=== PATIENT | male | born 1960 | race Caucasian/White ===

== ENCOUNTER 2017-03-05 13:46 | Emergency (ER) | payer MEDICAID ==
[2017-03-05 13:50] VITALS: BMI 31.1
[2017-03-05 13:54] VITALS: TEMP 98.4; O2SAT 96
[2017-03-05] MEDS ORDERED: TDAP Vaccine 0.5 mL Syr IM ONE (14:23)
--- NOTE | 2017-03-05 14:27 | ED PDOC ---
Arrival/HPI - General Chief Complaint: Trauma Time Seen by Provider: 03/05/17 14:19 Historian: Patient - History of Present Illness Narrative History of Present Illness (Text): 03/05/17 14:23 56 y/o male, pmh including htn/hyperlipidemia/dm, last tetanus doesn't remember , c/o rt. foot 1st digit toe pain s/p hit by the wood yesterday. Pt. had the shoe and the sock on, aching pain, aggravated by palpitating, no numbness or tingling, no night sweat, no rash, no palpitation, no other medical or psychological complaints. Past Medical History - Provider Review Nursing Documentation Reviewed: Yes - Infectious Disease Hx of Infectious Diseases: None - Tetanus Immunization Tetanus Immunization: Unknown - Cardiac Hx Cardiac Disorders: Yes Hx Hypertension: Yes Hx Pacemaker: No - Pulmonary Hx Respiratory Disorders: No - Neurological Hx Neurological Disorder: No Hx Paralysis: No - HEENT Hx HEENT Disorder: No - Renal Hx Renal Disorder: No - Endocrine/Metabolic Hx Endocrine Disorders: Yes Hx Diabetes Mellitus Type 2: Yes - Hematological/Oncological Hx Blood Disorders: No Hx Blood Transfusions: No - Integumentary Hx Dermatological Disorder: No - Musculoskeletal/Rheumatological Hx Musculoskeletal Disorders: No - Gastrointestinal Hx Gastrointestinal Disorders: No - Genitourinary/Gynecological Hx Genitourinary Disorders: No - Psychiatric Hx Psychophysiologic Disorder: No Hx Emotional Abuse: No Hx Physical Abuse: No Hx Substance Use: No - Surgical History Other/Comment: ingrown toenail sx on R foot - Anesthesia Hx Anesthesia: Yes Hx Anesthesia Reactions: No Hx Malignant Hyperthermia: No - Suicidal Assessment Feels Threatened In Home Enviroment: No Family/Social History - Physician Review Nursing Documentation Reviewed: Yes Family/Social History: Unknown Family HX Smoking Status: Never Smoked Hx Alcohol Use: No Hx Substance Use: No Allergies/Home Meds Allergies/Adverse Reactions: Allergies No Known Allergies Allergy (Verified 03/05/17 13:50) Home Medications: Home Meds Medication Instructions Recorded Confirmed Dutasteride/Tamsulosin HCl [Gissel 1 cap PO DAILY 04/08/14 03/05/17 0.5 mg-0.4 mg] Enalapril Maleate 2.5 mg PO DAILY 04/08/14 03/05/17 Losartan/Hydrochlorothiazide 1 tab PO DAILY 04/08/14 03/05/17 [Losartan Potassium-Hydrochlorothiazide 12.5 M] Metformin Hydrochloride [Metformin] 500 mg PO BID 04/08/14 03/05/17 Sitagliptin Phosphate [Januvia] 100 mg PO DAILY 04/08/14 03/05/17 Tamsulosin HCl [Flomax] 0.4 mg PO DAILY 04/08/14 03/05/17 Vitamin B Complex & Vitamin C 1 tab PO DAILY 04/08/14 03/05/17 [Strovite] Review of Systems - Review of Systems Constitutional: absent: Fatigue, Fevers Eyes: absent: Vision Changes ENT: absent: Hearing Changes Respiratory: absent: SOB, Cough Cardiovascular: absent: Chest Pain Gastrointestinal: absent: Abdominal Pain, Nausea, Vomiting Musculoskeletal: Arthralgias. absent: Back Pain, Neck Pain, Joint Swelling, Myalgias Skin: absent: Rash, Pruritis, Skin Lesions, Laceration Neurological: absent: Headache, Dizziness Physical Exam Vital Signs Reviewed: Yes Vital Signs Temp Pulse Resp BP Pulse Ox 03/05/17 16:10 79 18 135/71 96 03/05/17 14:43 85 18 138/79 96 03/05/17 13:53 98.4 F 91 H 17 143/87 96 Temperature: Afebrile Blood Pressure: Normal Pulse: Regular Respiratory Rate: Normal Appearance: Positive for: Well-Appearing, Non-Toxic, Comfortable Pain Distress: Moderate Mental Status: Positive for: Alert and Oriented X 3 Finger Stick Blood Glucose: 142 - Systems Exam Head: Present: Atraumatic, Normocephalic Pupils: Present: PERRL Extroacular Muscles: Present: EOMI Conjunctiva: Present: Normal Mouth: Present: Moist Mucous Membranes Neck: Present: Normal Range of Motion Respiratory/Chest: Present: Clear to Auscultation, Good Air Exchange. No: Respiratory Distress, Accessory Muscle Use Cardiovascular: Present: Regular Rate and Rhythm, Normal S1, S2. No: Murmurs Abdomen: Present: Normal Bowel Sounds. No: Tenderness, Distention, Peritoneal Signs Back: Present: Normal Inspection Upper Extremity: Present: Normal Inspection. No: Cyanosis, Edema Lower Extremity: Present: Normal Inspection, Other (Rt. foot: +ttp and ecchymosis noted on the 1st digit toe region with the nail chronically deformited as per patient, there is superficial dry blood noted on the medial aspect of the nail region, no cellulitis or streaking, no ulcers, FROM without limitation, sensation intact, motor 5/5, +DPPT pulses, capillary refill< 2 seconds, neurovascular intact. ). No: Edema Neurological: Present: GCS=15, CN II-XII Intact, Speech Normal Skin: Present: Warm, Dry, Normal Color. No: Rashes Psychiatric: Present: Alert, Oriented x 3, Normal Insight, Normal Concentration Medical Decision Making ED Course and Treatment: 03/05/17 14:27 -tdap/motrin -xray -wound irrigate with normal saline, clean with betadine, xerofoam and gauze dressing, demond tapping, post op shoe, crutches. -observe and reassess 03/05/17 15:36 -xray show there is fracture of the distal phalanx region of the 1st great toe. 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 - RAD Interpretation Radiology Orders: 03/05/17 14:23 FOOT RIGHT GREAT TOE ROUTINE [RAD] Stat PROCEDURE: Radiographs of the right great toe. TECHNIQUE:: AP radiograph of the right foot, with oblique and lateral view of the right great toe. COMPARISON: None. FINDINGS: BONES: There is suspicious for acute nondisplaced fracture at the distal phalanx of the right big toe. JOINTS: Normal. SOFT TISSUES: Mild soft tissue swelling noted. OTHER FINDINGS: None. IMPRESSION: Suspicious for acute nondisplaced fracture at the distal phalanx of the right great toe. . Party Chief: Radiologist - Medication Orders Current Medication Orders: Discontinued Medications Cephalexin Monohydrate (Keflex) 500 mg PO STAT STA PRN Reason: Protocol Stop: 03/05/17 15:35 Last Admin: 03/05/17 16:40 Dose: 500 mg Ibuprofen (Motrin Tab) 600 mg PO STAT STA Stop: 03/05/17 14:26 Last Admin: 03/05/17 14:57 Dose: 600 mg MAR Pain/Vitals Document 03/05/17 14:57 SF (Rec: 03/05/17 14:57 SF [email or web address]) Pain Reassessment Is This A Pain ReAssessment? Yes Sleep Is patient sleeping during reassessment? No Presence of Pain Presence of Pain Yes Tetanus/Reduced Diphtheria/Acell Pertussis (Boostrix Vaccine Inj) 0.5 ml IM .ONCE ONE Stop: 03/05/17 14:24 Last Admin: 03/05/17 14:57 Dose: 0.5 ml Immunization Registry Document 03/05/17 14:57 SF (Rec: 03/05/17 14:57 SF [email or web address]) Immunization Registry Consent Date 03/05/17 Trimethoprim/Sulfamethoxazole (Bactrim Ds Tab) 1 tab PO STAT STA PRN Reason: Protocol Stop: 03/05/17 15:35 Last Admin: 03/05/17 16:40 Dose: 1 tab - PA / [employer] / Resident Statement /DO has reviewed & agrees with the documentation as recorded. Disposition/Present on Arrival - Present on Arrival Any Indicators Present on Arrival: No History of DVT/PE: No History of Uncontrolled Diabetes: No Urinary Catheter: No History of Decub. 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 Prescriptions: Cephalexin [Keflex] 500 mg PO QID #40 capsule Ibuprofen [Motrin] 600 mg PO QID PRN #30 tab PRN Reason: Other Sulfamethoxazole/Trimethoprim [Bactrim DS 800 mg-160 mg] 1 tab PO BID #20 tab Referrals: Chiquita Al MD [Primary Care Provider] - Follow up with primary Wyatt William DPM [Staff Provider] - Follow up with primary Fredi Alfaro MD [Staff Provider] - Follow up with primary Forms: WORK NOTE
[2017-03-05 14:43] VITALS: RESP 18
[2017-03-05] MEDS ORDERED: Tmp-Smz 800 mg-160 mg DS Tab PO STA (15:34)
[2017-03-05 16:11] VITALS: BP 135/71; PULSE 79
--- NOTE | 2017-03-05 16:51 | RAD ---
PROCEDURE: Radiographs of the right great toe. TECHNIQUE:: AP radiograph of the right foot, with oblique and lateral view of the right great toe. COMPARISON: None. FINDINGS: BONES: There is suspicious for acute nondisplaced fracture at the distal phalanx of the right big toe. JOINTS: Normal. SOFT TISSUES: Mild soft tissue swelling noted. OTHER FINDINGS: None. IMPRESSION: Suspicious for acute nondisplaced fracture at the distal phalanx of the right great toe. .
== END 2017-03-05 16:41 | disposition home or self-care (01) ==
LOC: ED 13:46
DX: S92.421A Displaced fracture of distal phalanx of right great toe, initial encounter for closed fracture (principal); W22.8XXA Striking against or struck by other objects, initial encounter; E11.9 Type 2 diabetes mellitus without complications; E78.5 Hyperlipidemia, unspecified; I10 Essential (primary) hypertension; Z79.84 Long term (current) use of oral hypoglycemic drugs; Z23 Encounter for immunization